=== PATIENT | female | born 1940 | race Caucasian/White ===

== ENCOUNTER 2019-01-01 05:45 | Day surgery (SDC) | payer OTHER ==
[~2019-01-01] VITALS: Ht 160 cm; Wt 61.2 kg
[~2019-01-01 05:45] MED LIST: ACYC400T PO; LEVO25TA7 PO; OXYB5TAB11 PO; SERT25TA77 PO; VERA120C2 PO
[2019-01-01] MEDS ORDERED: CLINDAMYCIN PHOS 600 MG/ D5W 50 ML PREMIX IV ONE (06:45)
[2019-01-01] MEDS ORDERED: KETOROLAC TROMETHAMINE 30 MG VIAL IVP PRN (08:15)
[2019-01-01] MEDS ORDERED: fentaNYL CITRATE/PF 100 MCG/2 ML AMP IVP PRN ×2 (08:15)
[2019-01-01] MEDS ORDERED: ONDANSETRON HCL 4 MG/2 ML VIAL IVP PRN (08:15)
[2019-01-01] MEDS ORDERED: SEVOFLURANE 15 MIN GAS INH ONE (09:06)
[2019-01-01] MEDS ORDERED: MIDAZOLAM HCL 5 MG/5 ML VIAL IVP ONE (09:06)
[2019-01-01] MEDS ORDERED: PROPOFOL 200MG/ 20ML VIAL (DIPRIVAN) IV ONE (09:06)
[2019-01-01] MEDS ORDERED: GLYCOPYRROLATE 0.2 MG/ML VIAL IJ ONE (09:06)
[2019-01-01] MEDS ORDERED: NS IRRIG SOLN 1000 ML IR ONE (09:06)
[2019-01-01] MEDS ORDERED: LR 1,000 ML IV.SOLN IV ONE (09:06)
[2019-01-01] MEDS ORDERED: fentaNYL CITRATE/PF 100 MCG/2 ML AMP IVP ONE (09:06)
[2019-01-01] MEDS ORDERED: BUPIVACAINE /PF 0.25% 30 ML VIAL INJ ONE (09:06)
[2019-01-01] MEDS ORDERED: D5/0.45 NS 1,000 ML IV SCH (10:03)
[2019-01-01] MEDS ORDERED: HYDROmorphone 1 MG INJ. 1 MG/ML AMPUL IVP PRN (10:15)
[2019-01-01] MEDS ORDERED: HYDROcodone/ACETAMIN 5-325 MG TAB (NORCO/ VICODIN) PO PRN ×2 (10:15)
[2019-01-01 13:07] VITALS: BP_SYST 150
== END 2019-01-01 12:30 | disposition home or self-care (01) ==
LOC: SMU 05:45 → SDS 05:45
PROVIDERS: ATTEND Colon & Rectal Surgery
DX: C79.89 Secondary malignant neoplasm of other specified sites (principal); C50.912 Malignant neoplasm of unspecified site of left female breast; I70.0 Atherosclerosis of aorta; I10 Essential (primary) hypertension; J44.9 Chronic obstructive pulmonary disease, unspecified; E03.9 Hypothyroidism, unspecified; Z85.3 Personal history of malignant neoplasm of breast; G62.9 Polyneuropathy, unspecified; F33.9 Major depressive disorder, recurrent, unspecified; M35.3 Polymyalgia rheumatica; Z98.890 Other specified postprocedural states; Z80.0 Family history of malignant neoplasm of digestive organs; Z80.1 Family history of malignant neoplasm of trachea, bronchus and lung; Z80.3 Family history of malignant neoplasm of breast; Z79.899 Other long term (current) drug therapy; Z88.0 Allergy status to penicillin; Z88.8 Allergy status to other drugs, medicaments and biological substances; Z68.39 Body mass index [BMI] 39.0-39.9, adult
CPT/HCPCS: 19260; 88309; 88341; 88342; 88361; J2250; J2704; J3010; J3490 ×3; J7120; 88305